=== PATIENT | female | born 1995 | race Caucasian/White ===

== ENCOUNTER 2016-12-18 20:41 | Emergency (ER) | payer MEDICAID ==
[~2016-12-18] VITALS: Ht 167.6 cm; Wt 94.3 kg
[~2016-12-18 20:41] MED LIST: ALBU8.5H3 INH; CEPH-376 PO; HYDR-3138 PO; ONDA4TAB10 PO; PREN-13 PO
[2016-12-18] MEDS ORDERED: SODIUM CHLORIDE FLUSH 10ML SYR IVF ONE (21:00)
[2016-12-18 21:38] LABS: BLOOD UREA NITROGEN 14 mg/dL (7-18)
[2016-12-18 23:01] VITALS: BP 118/70
== END 2016-12-18 23:03 | disposition home or self-care (01) ==
LOC: ED 22:23
DX: O26.891 Other specified pregnancy related conditions, first trimester (principal); R10.31 Right lower quadrant pain; R10.32 Left lower quadrant pain
CPT/HCPCS: 36415; 76830; 80048; 82040; 84702; 85025

== ENCOUNTER 2016-12-25 21:39 | Emergency (ER) | payer MEDICAID ==
[~2016-12-25] VITALS: Ht 167.6 cm; Wt 93.6 kg
[2016-12-25] MEDS ORDERED: ACETAMINOPHEN 325 MG TABLET PO ONE (23:00)
[2016-12-25 23:05] LABS: ASPARTATE AMINO TRANSFERASE 14 U/L (15-37); BLOOD UREA NITROGEN 11 mg/dL (7-18)
[2016-12-25] MEDS ORDERED: ACETAMINOPHEN 325 MG TABLET ONE (23:22)
[2016-12-26 01:58] VITALS: BP 116/73
== END 2016-12-26 02:01 | disposition home or self-care (01) ==
LOC: ED 22:15
DX: Z32.01 Encounter for pregnancy test, result positive (principal); Z90.49 Acquired absence of other specified parts of digestive tract
CPT/HCPCS: 36415; 76801; 80053; 81003; 83690; 84702; 85025; 99285

== ENCOUNTER 2017-07-18 21:03 | Emergency (ER) | payer MEDICAID ==
[~2017-07-18] VITALS: Ht 167.6 cm; Wt 94.0 kg
[~2017-07-18 21:03] MED LIST changes: -ALBU8.5H3 INH; +ALBU8.5H8 INH; -HYDR-3138 PO; +HYDR-3237 PO
[2017-07-18] MEDS ORDERED: PROCHLORPERAZINE 5 MG/ML, 2ML ONE (21:59)
[2017-07-18] MEDS ORDERED: DIPHENHYDRAMINE 50 MG/ML, 1ML ONE (21:59)
[2017-07-18] MEDS ORDERED: SODIUM CHLORIDE FLUSH 10ML SYR IVF ONE (22:00)
[2017-07-18] MEDS ORDERED: DIPHENHYDRAMINE 50 MG/ML, 1ML IVPush ONE (22:00)
[2017-07-18] MEDS ORDERED: PROCHLORPERAZINE 5 MG/ML, 2ML IVPush ONE (22:00)
[2017-07-18 22:14] VITALS: BP 138/57
== END 2017-07-18 23:05 | disposition home or self-care (01) ==
LOC: ED 22:40
DX: G43.909 Migraine, unspecified, not intractable, without status migrainosus (principal); E11.9 Type 2 diabetes mellitus without complications; Z90.49 Acquired absence of other specified parts of digestive tract
CPT/HCPCS: 96374; 96375; 99284; J0780; J1200

== ENCOUNTER 2019-07-16 15:33 | Emergency (ER) | payer MEDICAID ==
[~2019-07-16] VITALS: Ht 170.2 cm; Wt 101.0 kg
--- NOTE | 2019-07-16 15:36 | NUR ---
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 PT WITH MGLF, C/O ANKLE PAIN. CONCERN ABOUT BABY, "I LANDED ON MY STOMACH" PT DENIES VB OR ABD/BACK PAIN. CALL TO L&D, SPOKE WITH KNURLING MACHINE OPERATOR, L&D TO BE NOTIFIED OF PT ROOM AND WILL COME DOPPLER PT.
[2019-07-16 15:48] VITALS: BP 133/69
--- NOTE | 2019-07-16 15:53 | NUR ---
L&D notified to check pt for heart tones in ED.
--- NOTE | 2019-07-16 16:00 | NUR ---
l&d RN at bedside, heart tones present. xr at bedside. pt is miscarriage 1 2. c/o L ankle pain, scraped R knee, no other complaints.
[2019-07-16] MEDS ORDERED: ACETAMINOPHEN 325 MG TABLET ONE (16:14)
--- NOTE | 2019-07-16 16:16 | NUR ---
apap per mar.
--- NOTE | 2019-07-16 16:26 | NUR ---
xr neg. results up for recheck.
[2019-07-16] MEDS ORDERED: ACETAMINOPHEN 325 MG TABLET PO ONE (16:30)
== END 2019-07-16 16:49 | disposition home or self-care (01) ==
LOC: ED 16:35
DX: O9A.212 Injury, poisoning and certain other consequences of external causes complicating pregnancy, second trimester (principal); S93.492A Sprain of other ligament of left ankle, initial encounter; E11.9 Type 2 diabetes mellitus without complications; G43.909 Migraine, unspecified, not intractable, without status migrainosus; Z3A.20 20 weeks gestation of pregnancy; X50.1XXA Overexertion from prolonged static or awkward postures, initial encounter; Y93.89 Activity, other specified; Y92.098 Other place in other non-institutional residence as the place of occurrence of the external cause; Y99.8 Other external cause status
CPT/HCPCS: 99283

== ENCOUNTER 2019-11-07 13:58 | Inpatient (IN) | payer MEDICAID ==
[~2019-11-07] VITALS: Ht 170.2 cm; Wt 113.6 kg
[2019-11-07] MEDS ORDERED: ACETAMINOPHEN 500 MG TABLET ONE ×2 (14:30→20:37)
[2019-11-07] MEDS ORDERED: ACETAMINOPHEN 500 MG TABLET PO ONE (14:30)
[2019-11-07 14:45] VITALS: BP 138/75
[2019-11-07] MEDS ORDERED: PLEASE ENTER HEIGHT AND WEIGHT MC SCH (15:00)
[2019-11-07 15:01] LABS: MICROSCOPIC INDICATED
[2019-11-07] MEDS ORDERED: LACTATED RINGERS 1,000 ML IVBOLUS ONE (16:00)
[2019-11-07 16:25] LABS: BASOPHILS # (AUTO) 0.04 x10^3/uL (0-0.1); BASOPHILS % (AUTO) 0 % (0-1); EOSINOPHILS % (AUTO) 1 % (1-7); LYMPHOCYTES # (AUTO) 1.97 x10^3/uL (1-3.4); LYMPHOCYTES % (AUTO) 15 % (22-44); MD NO; MEAN CORPUSCULAR HEMOGLOBIN 29.3 pg (27.0-34.8); MEAN CORPUSCULAR HGB CONC 33.8 g/dL (32.4-35.8); MEAN CORPUSCULAR VOLUME 86.8 fL (80-100); MEAN PLATELET VOLUME 8.3 fL (7.4-10.4); MONOCYTES % (AUTO) 5 % (2-9); NEUTROPHILS # (AUTO) 10.48 x10^3/uL (1.8-6.8); NEUTROPHILS % (AUTO) 79 % (42-75); PLATELET COUNT 341 x10^3/uL (130-400); RED BLOOD COUNT 4.69 x10^6/uL (3.82-5.3); RED CELL DISTRIBUTION WIDTH 13.6 % (9.6-15.2)
[2019-11-07 16:35] LABS: INTERNATIONAL NORMALIZED RATIO 0.91 (0.93-1.1); PROTHROMBIN TIME 9.6 Seconds (9.6-11.5)
[2019-11-07 16:36] LABS: ALANINE AMINOTRANSFERASE 18 U/L (12-78); ALBUMIN 2.5 g/dL (3.4-5.0); ANION GAP 7 mmol/L (5-15); CALCIUM 8.9 mg/dL (8.5-10.1); CHLORIDE 110 mmol/L (98-107); CREATININE 0.71 mg/dL (0.55-1.02)
[2019-11-07 16:38] LABS: ALKALINE PHOSPHATASE 119 U/L (45-117); BILIRUBIN,TOTAL 0.2 mg/dL (0.2-1.0); TOTAL PROTEIN 6.9 g/dL (6.4-8.2)
[2019-11-07] MEDS ORDERED: BETAMETHASONE 6 MG/ML, 5ML IM ONE ×2 (18:45→19:00)
[2019-11-07] MEDS: ACETAMINOPHEN 500 MG TABLET PO PRN (20:39)
[2019-11-07] MEDS: SODIUM CHLORIDE FLUSH 3ML SYRINGE IVF SCH (21:00)
[2019-11-07] MEDS ORDERED: DOCUSATE 100 MG CAPSULE ONE (21:28)
[2019-11-08] MEDS ORDERED: ACETAMINOPHEN 500 MG TABLET ONE ×3 (01:56→18:38)
[2019-11-08] MEDS: ACETAMINOPHEN 500 MG TABLET PO PRN ×3 (01:58→18:40)
[2019-11-08] MEDS ORDERED: PRENATAL VIT/IRON/FA 1 EACH TABLET ONE (07:43)
[2019-11-08] MEDS ORDERED: DOCUSATE 100 MG CAPSULE ONE (07:44)
[2019-11-08 08:31] VITALS: BP 137/63
[2019-11-08] MEDS: SODIUM CHLORIDE FLUSH 3ML SYRINGE IVF SCH (09:00)
[2019-11-08] MEDS: PRENATAL VIT/IRON/FA 1 EACH TABLET PO SCH (09:12)
[2019-11-08] MEDS: DOCUSATE 100 MG CAPSULE PO SCH (09:13)
[2019-11-08] MEDS ORDERED: OXYTOCIN 30U/ 0.9% NaCL 500ML 500 ML IV ONE (15:13)
[2019-11-08] MEDS ORDERED: OXYTOCIN 30U/ 0.9% NaCL 500ML 500 ML IV PRN (15:13)
[2019-11-08] MEDS ORDERED: D5%-LACTATED RINGERS 1,000 ML IV SCH (15:13)
[2019-11-08] MEDS ORDERED: NEWBORN KIT ONE (15:23)
[2019-11-08] MEDS ORDERED: FENTANYL PF 100 MCG/2ML IV PRN (15:30)
[2019-11-08] MEDS ORDERED: FENTANYL PF 100 MCG/2ML IVPush PRN (15:30)
[2019-11-08] MEDS ORDERED: TERBUTALINE 1 MG/ML, 1ML IVPush PRN (15:30)
[2019-11-08] MEDS ORDERED: CALCIUM CARBONATE 500 MG TAB.CHEW PO PRN (15:30)
[2019-11-08] MEDS ORDERED: TERBUTALINE 1 MG/ML, 1ML SQ PRN (15:30)
[2019-11-08] MEDS ORDERED: ONDANSETRON 2MG/ML, 2ML IVPush PRN (15:30)
[2019-11-08] MEDS ORDERED: HYDROXYZINE PAMOATE 25MG CAP PO PRN (16:00)
[2019-11-09] MEDS: SODIUM CHLORIDE FLUSH 3ML SYRINGE IVF SCH ×3 (09:08→21:00)
[2019-11-09] MEDS ORDERED: PRENATAL VIT/IRON/FA 1 EACH TABLET ONE (09:39)
[2019-11-09] MEDS ORDERED: DOCUSATE 100 MG CAPSULE ONE (09:40)
[2019-11-09] MEDS: DOCUSATE 100 MG CAPSULE PO SCH (09:42)
[2019-11-09] MEDS: PRENATAL VIT/IRON/FA 1 EACH TABLET PO SCH (09:43)
[2019-11-09] MEDS ORDERED: PENICILLIN GK 5,000,000 UNITS in DEXTROSE 5% 100 ML IVPB ONE (14:00)
[2019-11-09] MEDS: LACTATED RINGERS 1,000 ML IV SCH (17:07)
[2019-11-09] MEDS ORDERED: LIDOCAINE 1%, 20ML ONE (17:19)
[2019-11-09] MEDS ORDERED: MISOPROSTOL 200 MCG TABLET ONE (17:19)
[2019-11-09] MEDS ORDERED: MISOPROSTOL 25 MCG TABLET ONE ×2 (17:40→22:25)
[2019-11-09] MEDS: MISOPROSTOL 25 MCG TABLET VG PRN ×2 (18:30→22:42)
[2019-11-09 19:30] VITALS: BP 133/63
[2019-11-09] MEDS ORDERED: FENTANYL/BUPIV./NS/PF 250 ML EPIDCONT SCH (19:37)
[2019-11-09] MEDS ORDERED: FENTANYL PF 500 MCG, BUPIVACAINE/PF 0.5%, 30ML 62.5 ML in SODIUM CHLORIDE 0.9% 177.5 ML EPIDCONT SCH (20:00)
[2019-11-09] MEDS: PENICILLIN GK 2,500,000 UNITS in DEXTROSE 5% 100 ML IVPB SCH (21:05)
[2019-11-09] MEDS ORDERED: OXYTOCIN 30U/ 0.9% NaCL 500ML 500 ML ONE (22:25)
[2019-11-10] MEDS: PENICILLIN GK 2,500,000 UNITS in DEXTROSE 5% 100 ML IVPB SCH ×4 (00:59→13:15)
[2019-11-10] MEDS ORDERED: MISOPROSTOL 25 MCG TABLET ONE ×2 (02:38→07:23)
[2019-11-10] MEDS: MISOPROSTOL 25 MCG TABLET VG PRN ×2 (02:53→07:30)
[2019-11-10] MEDS: LACTATED RINGERS 1,000 ML IV SCH (06:04)
[2019-11-10] MEDS: OXYTOCIN 30U/ 0.9% NaCL 500ML 500 ML IV PRN ×3 (07:54→18:57)
[2019-11-10] MEDS ORDERED: FENTANYL PF 100 MCG/2ML ONE (08:10)
[2019-11-10] MEDS: SODIUM CHLORIDE FLUSH 3ML SYRINGE IVF SCH ×2 (09:00→21:00)
[2019-11-10] MEDS ORDERED: LACTATED RINGERS 1,000 ML IV SCH (10:51)
[2019-11-10] MEDS ORDERED: FENTANYL/BUPIV./NS/PF 250 ML EPIDCONT SCH (10:51)
[2019-11-10] MEDS ORDERED: BUPIVACAINE 0.25% ONE ×2 (10:53→10:56)
[2019-11-10] MEDS ORDERED: FENTANYL/BUPIV./NS/PF 250 ML EPIDCONT ONE (10:56)
[2019-11-10] MEDS ORDERED: NALOXONE 0.4 MG/ML, 1ML IVPush PRN (11:00)
[2019-11-10] MEDS ORDERED: LACTATED RINGERS 1,000 ML IVBOLUS PRN (11:00)
[2019-11-10] MEDS ORDERED: EPHEDRINE 50 MG/ML, 1ML IVPush PRN (11:00)
[2019-11-10 15:48] LABS: ALANINE AMINOTRANSFERASE 19 U/L (12-78); ALBUMIN 2.3 g/dL (3.4-5.0); ANION GAP 8 mmol/L (5-15); CALCIUM 8.7 mg/dL (8.5-10.1); CHLORIDE 107 mmol/L (98-107)
[2019-11-10 15:50] LABS: ALKALINE PHOSPHATASE 103 U/L (45-117); BILIRUBIN,TOTAL 0.3 mg/dL (0.2-1.0); CREATININE 0.56 mg/dL (0.55-1.02); TOTAL PROTEIN 6.3 g/dL (6.4-8.2)
[2019-11-10 15:54] LABS: CREATININE,URINE RANDOM 25.1 mg/dL
[2019-11-10 16:12] LABS: MEAN CORPUSCULAR HEMOGLOBIN 29.5 pg (27.0-34.8); MEAN CORPUSCULAR HGB CONC 33.5 g/dL (32.4-35.8); MEAN CORPUSCULAR VOLUME 88.2 fL (80-100); MEAN PLATELET VOLUME 7.9 fL (7.4-10.4); PLATELET COUNT 366 x10^3/uL (130-400); RED BLOOD COUNT 4.47 x10^6/uL (3.82-5.3); RED CELL DISTRIBUTION WIDTH 13.9 % (9.6-15.2)
[2019-11-10 16:30] LABS: BASOPHILS # (AUTO) 0.04 x10^3/uL (0-0.1); BASOPHILS % (AUTO) 0 % (0-1); EOSINOPHILS # (AUTO) 0.02 x10^3/uL (0-0.4); EOSINOPHILS % (AUTO) 0 % (1-7); LYMPHOCYTES # (AUTO) 2.12 x10^3/uL (1-3.4); LYMPHOCYTES % (AUTO) 13 % (22-44); MD SCAN; MONOCYTES % (AUTO) 8 % (2-9); NEUTROPHILS # (AUTO) 13.18 x10^3/uL (1.8-6.8); NEUTROPHILS % (AUTO) 79 % (42-75)
[2019-11-10] MEDS ORDERED: IBUPROFEN 600 MG TABLET ONE (16:57)
[2019-11-10] MEDS: IBUPROFEN 600 MG TABLET PO PRN ×2 (17:00→23:20)
[2019-11-10] MEDS: OXYTOCIN 30U/ 0.9% NaCL 500ML 500 ML IV SCH (17:02)
[2019-11-10] MEDS ORDERED: SIMETHICONE 80 MG CHEW TAB PO PRN (17:30)
[2019-11-10] MEDS ORDERED: DOCUSATE 100 MG CAPSULE PO PRN (17:30)
[2019-11-10] MEDS ORDERED: MISOPROSTOL 200 MCG TABLET PR PRN (17:30)
[2019-11-10 18:24] VITALS: BP 124/78
[2019-11-10] MEDS: OXYcodone IR 5MG TABLET PO PRN ×2 (18:38→23:20)
[2019-11-10] MEDS: ACETAMINOPHEN 325 MG TABLET PO PRN ×2 (18:39→23:21)
[2019-11-10 19:40] VITALS: BP 110/74
[2019-11-11 00:09] VITALS: BP 115/74
[2019-11-11] MEDS: OXYTOCIN 30U/ 0.9% NaCL 500ML 500 ML IV SCH ×2 (03:02→13:02)
[2019-11-11] MEDS: ACETAMINOPHEN 325 MG TABLET PO PRN ×2 (03:59→09:16)
[2019-11-11] MEDS: OXYcodone IR 5MG TABLET PO PRN ×2 (04:00→09:16)
[2019-11-11 05:20] VITALS: BP 117/73
[2019-11-11] MEDS: IBUPROFEN 600 MG TABLET PO PRN (05:31)
[2019-11-11 06:16] LABS: BASOPHILS # (AUTO) 0.02 x10^3/uL (0-0.1); BASOPHILS % (AUTO) 0 % (0-1); EOSINOPHILS # (AUTO) 0.05 x10^3/uL (0-0.4); EOSINOPHILS % (AUTO) 0 % (1-7); LYMPHOCYTES # (AUTO) 2.12 x10^3/uL (1-3.4); LYMPHOCYTES % (AUTO) 16 % (22-44); MD NO; MEAN CORPUSCULAR HEMOGLOBIN 29.5 pg (27.0-34.8); MEAN CORPUSCULAR HGB CONC 33.9 g/dL (32.4-35.8); MEAN CORPUSCULAR VOLUME 87.1 fL (80-100); MEAN PLATELET VOLUME 8.3 fL (7.4-10.4); MONOCYTES % (AUTO) 10 % (2-9); NEUTROPHILS # (AUTO) 10.23 x10^3/uL (1.8-6.8); NEUTROPHILS % (AUTO) 75 % (42-75); PLATELET COUNT 326 x10^3/uL (130-400); RED BLOOD COUNT 4.16 x10^6/uL (3.82-5.3); RED CELL DISTRIBUTION WIDTH 14.1 % (9.6-15.2)
[2019-11-11] MEDS ORDERED: PRENATAL VIT/IRON/FA 1 EACH TABLET PO SCH (09:00)
[2019-11-11 09:13] VITALS: BP 126/81
[2019-11-11 13:05] VITALS: BP 118/79
[2019-11-11] MEDS ORDERED: IBUP-1222 PO (16:57)
== END 2019-11-11 18:00 | disposition home or self-care (01) | DRG 807 ==
LOC: LDOP 13:58 → LDIP 16:07 → OBSVTOIN 11-08 14:00 → INTOOBSV 11-08 14:08 → OBSVTOIN 11-08 14:08 → LDIP 11-09 18:15 → 2NW 11-10 18:07
PROVIDERS: ADMIT Student in an Organized Health Care Education/Training Program; ATTEND Student in an Organized Health Care Education/Training Program
PROC: 10907ZC Drainage of Amniotic Fluid, Therapeutic from Products of Conception, Via Natural or Artificial Opening (ICD-10-PCS; principal; 2019-11-10)
PROC: 10E0XZZ Delivery of Products of Conception, External Approach (ICD-10-PCS; 2019-11-10)
PROC: 0UQKXZZ Repair Hymen, External Approach (ICD-10-PCS; 2019-11-10)
PROC: 3E0R3BZ Introduction of Anesthetic Agent into Spinal Canal, Percutaneous Approach (ICD-10-PCS; 2019-11-10)
PROC: 00HU33Z Insertion of Infusion Device into Spinal Canal, Percutaneous Approach (ICD-10-PCS; 2019-11-10)
PROC: 3E033VJ Introduction of Other Hormone into Peripheral Vein, Percutaneous Approach (ICD-10-PCS; 2019-11-10)
DX: O13.4 Gestational [pregnancy-induced] hypertension without significant proteinuria, complicating childbirth (principal); Z37.0 Single live birth; O99.214 Obesity complicating childbirth; E66.01 Morbid (severe) obesity due to excess calories; O99.344 Other mental disorders complicating childbirth; F41.9 Anxiety disorder, unspecified; O76 Abnormality in fetal heart rate and rhythm complicating labor and delivery; O14.04 Mild to moderate pre-eclampsia, complicating childbirth; O99.824 Streptococcus B carrier state complicating childbirth; O99.52 Diseases of the respiratory system complicating childbirth; Z3A.36 36 weeks gestation of pregnancy; J45.909 Unspecified asthma, uncomplicated; O60.14X0 Preterm labor third trimester with preterm delivery third trimester, not applicable or unspecified; Z80.1 Family history of malignant neoplasm of trachea, bronchus and lung; Z82.3 Family history of stroke; Z90.49 Acquired absence of other specified parts of digestive tract; Z83.2 Family history of diseases of the blood and blood-forming organs and certain disorders involving the immune mechanism; Z82.49 Family history of ischemic heart disease and other diseases of the circulatory system; O70.0 First degree perineal laceration during delivery
CPT/HCPCS: 36415; 76815; 76819; 80053; 81001; 82570; 84156; 85025; 85384; 85610; 85730; 86592; 86850; 86900; 87086; G0378; J0702; J2540; J3010; J3490; J2590; J7120

== ENCOUNTER 2020-02-02 09:05 | Emergency (ER) | payer MEDICAID ==
[~2020-02-02] VITALS: Ht 170.2 cm; Wt 108.0 kg
[~2020-02-02 09:05] MED LIST changes: +IBUP-1222 PO
--- NOTE | 2020-02-02 09:33 | NUR ---
DOCUMENT MANAGEMENT ANALYST: PT AMBULATORY WITH STEADY GAIT TO ROOM AT THIS TIME. LUIS ALBERTO
--- NOTE | 2020-02-02 09:45 | NUR ---
THIS IS A 25 YO F W/ C/O GENERAL ABD PAIN/EPIGASTRIC PAIN X3 DAYS. PT REPORTS IUD PLACED LAST SUNDAY. REPORTS NAUSEA, DENIES V/D. PT AMBULATED TO THE W/ A STEADY GAIT, URINE COLLECTED, RETURNED TO [facility], CALL LIGHT IN REACH. PT RESP EVEN AND UNLABORED, NADN. EDGARDO BUCHANAN IN ROOM FOR ED EVAL.
[2020-02-02] MEDS ORDERED: HYDR50TA99 PO (09:51)
[2020-02-02] MEDS ORDERED: SODIUM CHLORIDE FLUSH 10ML SYR IVF ONE (10:00)
[2020-02-02] MEDS ORDERED: ONDANSETRON 2MG/ML, 2ML IVPush ONE (10:00)
[2020-02-02] MEDS ORDERED: MORPHINE SULFATE 4 MG/ML, 1ML ONE ×2 (10:01→11:16)
[2020-02-02] MEDS ORDERED: ONDANSETRON 2MG/ML, 2ML ONE (10:01)
[2020-02-02] MEDS: MORPHINE SULFATE 4 MG/ML, 1ML IVPush PRN ×3 (10:03→11:20)
--- NOTE | 2020-02-02 10:11 | NUR ---
PT REPORTS HX OF ANXIETY W/ PAIN MEDS. REQUESTING HALF DOSE OF ORDERED MORPHINE.
[2020-02-02 10:20] LABS: BASOPHILS # (AUTO) 0.03 x10^3/uL (0-0.1); BASOPHILS % (AUTO) 0 % (0-1); EOSINOPHILS # (AUTO) 0.28 x10^3/uL (0-0.4); EOSINOPHILS % (AUTO) 3 % (1-7); LYMPHOCYTES # (AUTO) 2.46 x10^3/uL (1-3.4); LYMPHOCYTES % (AUTO) 27 % (22-44); MD NO; MEAN CORPUSCULAR HEMOGLOBIN 29.1 pg (27.0-34.8); MEAN CORPUSCULAR HGB CONC 33.8 g/dL (32.4-35.8); MONOCYTES # (AUTO) 0.72 x10^3/uL (0.2-0.8); MONOCYTES % (AUTO) 8 % (2-9); NEUTROPHILS # (AUTO) 5.51 x10^3/uL (1.8-6.8); NEUTROPHILS % (AUTO) 61 % (42-75); PLATELET COUNT 431 x10^3/uL (130-400); RED BLOOD COUNT 5.06 x10^6/uL (3.82-5.3)
[2020-02-02 10:21] LABS: HCG UR SG 1.023 (1.003-1.030); MICROSCOPIC NOT IND
[2020-02-02 10:31] LABS: ALANINE AMINOTRANSFERASE 29 U/L (12-78); ALBUMIN 3.3 g/dL (3.4-5.0); ANION GAP 6 mmol/L (5-15); CALCIUM 8.7 mg/dL (8.5-10.1); CHLORIDE 110 mmol/L (98-107); CREATININE 0.73 mg/dL (0.55-1.02)
[2020-02-02 10:33] LABS: ALKALINE PHOSPHATASE 85 U/L (45-117); BILIRUBIN,TOTAL 0.3 mg/dL (0.2-1.0); TOTAL PROTEIN 7.1 g/dL (6.4-8.2)
--- NOTE | 2020-02-02 11:03 | NUR ---
PT LAYING ON GURNEY AWAKE & C/O PAIN , WILL MEDICATE PER EMAR, RESPONDS APPROP TO STAFF, COMFORT MEASURES PROVIDED, CALL LIGHT WITHIN REACH.
[2020-02-02 12:03] VITALS: BP 139/91
--- NOTE | 2020-02-02 12:03 | NUR ---
PT LAYING ON GURNEY AWAKE & C/O INCR PAIN AFTER US, COMFORT MEASURES PROVIDED- MEDICATED PRIOR TO US/WARM BLANKETS GIVEN FOR ABD & BACK, CALL LIGHT WITHIN REACH.
== END 2020-02-02 13:03 | disposition home or self-care (01) ==
LOC: ED 12:52
DX: R10.13 Epigastric pain (principal); R11.0 Nausea; E11.9 Type 2 diabetes mellitus without complications; Z90.49 Acquired absence of other specified parts of digestive tract
CPT/HCPCS: 36415; 76700; 80053; 81003; 81025; 83690; 85025; 96374; 96375; 96376; 99284; J2270; J2405

== ENCOUNTER → 2020-03-31 | Outpatient (CLI) | payer MEDICAID ==
[~2020-03-31] MED LIST changes: +HYDR50TA99 PO
[2020-03-31 10:27] LABS: BASOPHILS # (AUTO) 0.03 x10^3/uL (0-0.1); BASOPHILS % (AUTO) 0 % (0-1); EOSINOPHILS # (AUTO) 0.23 x10^3/uL (0-0.4); EOSINOPHILS % (AUTO) 2 % (1-7); LYMPHOCYTES # (AUTO) 2.26 x10^3/uL (1-3.4); LYMPHOCYTES % (AUTO) 24 % (22-44); MD NO; MEAN CORPUSCULAR HGB CONC 33.7 g/dL (32.4-35.8); MONOCYTES # (AUTO) 0.68 x10^3/uL (0.2-0.8); MONOCYTES % (AUTO) 7 % (2-9); NEUTROPHILS # (AUTO) 6.37 x10^3/uL (1.8-6.8); NEUTROPHILS % (AUTO) 67 % (42-75); PLATELET COUNT 436 x10^3/uL (130-400); RED BLOOD COUNT 5.22 x10^6/uL (3.82-5.3); RED CELL DISTRIBUTION WIDTH 13.1 % (9.6-15.2)
[2020-03-31 10:28] LABS: ALANINE AMINOTRANSFERASE 29 U/L (12-78); ALBUMIN 3.6 g/dL (3.4-5.0); ANION GAP 3 mmol/L (5-15); CALCIUM 9.1 mg/dL (8.5-10.1); CHLORIDE 109 mmol/L (98-107); CREATININE 0.76 mg/dL (0.55-1.02)
[2020-03-31 10:33] LABS: ALKALINE PHOSPHATASE 74 U/L (45-117); BILIRUBIN,TOTAL 0.2 mg/dL (0.2-1.0); MICROSCOPIC AUTO; TOTAL PROTEIN 7.3 g/dL (6.4-8.2)
== END | disposition home or self-care (01) ==
LOC: STAR 09:10
PROVIDERS: ATTEND Student in an Organized Health Care Education/Training Program
DX: Z01.818 Encounter for other preprocedural examination (principal)
CPT/HCPCS: 36415; 80053; 81001; 84702; 85025; 87086

== ENCOUNTER → 2020-04-02 | Outpatient (CLI) | payer MEDICAID | END | disposition home or self-care (01) | LOC: STAR 10:55 | PROVIDERS: ATTEND Anesthesiology | DX: Z01.812 Encounter for preprocedural laboratory examination (principal); Z20.828 Contact with and (suspected) exposure to other viral communicable diseases | CPT/HCPCS: 36415; 87635 ==

== ENCOUNTER 2020-04-07 13:32 | Day surgery (SDC) | payer MEDICAID ==
[~2020-04-07] VITALS: Ht 170.2 cm; Wt 106.6 kg
[2020-04-07 13:51] VITALS: BP 119/78
[2020-04-07] MEDS ORDERED: LACTATED RINGERS 1,000 ML IV SCH (13:53)
[2020-04-07] MEDS ORDERED: CHLORHEXIDINE 15 ML UDC ONE (13:59)
[2020-04-07] MEDS ORDERED: CHLORHEXIDINE 15 ML UDC MM ONE (14:00)
[2020-04-07 14:15] LABS: HCG UR SG 1.025 (1.003-1.030)
[2020-04-07] MEDS ORDERED: BUPIVACAINE/PF 0.25% ONE (14:38)
[2020-04-07] MEDS ORDERED: EPINEPHRINE 1 MG/ML, 1ML ONE (14:38)
[2020-04-07] MEDS ORDERED: MIDAZOLAM 1 MG/ML, 2ML ONE (14:58)
[2020-04-07] MEDS ORDERED: FENTANYL PF 250 MCG/5ML ONE (14:59)
[2020-04-07] MEDS ORDERED: PROMETHAZINE 25 MG/ML, 1ML IVPush PRN (15:30)
[2020-04-07] MEDS ORDERED: MEPERIDINE/PF 25MG/0.5ML IVPush PRN (15:30)
[2020-04-07] MEDS ORDERED: LABETALOL 5MG/ML, 20ML IV PRN (15:30)
[2020-04-07] MEDS ORDERED: ACETAMINOPHEN 325 MG TABLET PO PRN (15:30)
[2020-04-07] MEDS ORDERED: morphine SULFATE 10 MG/ML, 1ML IVPush PRN (15:30)
[2020-04-07] MEDS ORDERED: HYDROmorphone 1 MG/ML, 1ML INJ IVPush PRN (15:30)
[2020-04-07] MEDS ORDERED: OXYcodone 5 MG/5 ML ORAL.SOL UDC PO PRN (15:30)
[2020-04-07] MEDS ORDERED: HALOPERIDOL 5 MG/ML IV PRN (15:30)
[2020-04-07] MEDS ORDERED: FENTANYL PF 100 MCG/2ML IV PRN (15:30)
[2020-04-07] MEDS ORDERED: hydrALAzine 20 MG/ML, 1ML IV PRN (15:30)
[2020-04-07] MEDS ORDERED: GLYCOPYRROLATE 0.2MG/1ML, 5ML ONE (16:07)
[2020-04-07] MEDS ORDERED: ROCURONIUM 10MG/ML,5ML ONE (16:07)
[2020-04-07] MEDS ORDERED: ONDANSETRON 2MG/ML, 2ML ONE ×2 (16:07→17:02)
[2020-04-07] MEDS ORDERED: NEOSTIGMINE 1 MG/ML, 10ML ONE (16:07)
[2020-04-07] MEDS ORDERED: PROPOFOL 10 MG/ML, 20ML ONE (16:07)
[2020-04-07] MEDS ORDERED: CEFAZOLIN 1,000 MG ONE (16:07)
[2020-04-07] MEDS ORDERED: DEXAMETHASONE 4 MG/ML, 1ML ONE (16:07)
[2020-04-07] MEDS ORDERED: FENTANYL PF 100 MCG/2ML ONE (16:28)
[2020-04-07] MEDS ORDERED: MEPERIDINE/PF 25MG/ML,1ML ONE (16:29)
[2020-04-07] MEDS ORDERED: OXYcodone 5 MG/5 ML ORAL.SOL UDC ONE (16:29)
[2020-04-07] MEDS ORDERED: KETOROLAC 30 MG/1 ML ONE (18:03)
[2020-04-07] MEDS ORDERED: KETOROLAC 30 MG/1 ML IVPush PRN (18:30)
== END 2020-04-07 18:30 | disposition home or self-care (01) ==
LOC: OR 13:32
PROVIDERS: ATTEND Student in an Organized Health Care Education/Training Program
DX: Z30.2 Encounter for sterilization (principal); K66.0 Peritoneal adhesions (postprocedural) (postinfection); J45.909 Unspecified asthma, uncomplicated; E66.01 Morbid (severe) obesity due to excess calories; Z90.49 Acquired absence of other specified parts of digestive tract; Z98.890 Other specified postprocedural states; Z79.899 Other long term (current) drug therapy; Z68.36 Body mass index [BMI] 36.0-36.9, adult; Z82.49 Family history of ischemic heart disease and other diseases of the circulatory system
CPT/HCPCS: 36415; 58670; 81025; 86850; 86900; 88302; J0171; J0690; J1100; J2175; J2250; J2405; J2704; J2710; J3010; J3490; J7120